=== PATIENT | male | born 1935 | race Caucasian/White ===

== ENCOUNTER 2018-04-05 15:26 | Inpatient (IN) | payer MEDICARE, OTHER ==
[~2018-04-05] VITALS: Ht 175.3 cm; Wt 85.5 kg
[~2018-04-05 15:26] MED LIST: BENAZEPRIL; HUMALOG INSULIN; METFORMIN; NPH; SIMVASTATIN
--- NOTE | 2018-04-05 15:53 | ERD ---
ER Documentation Chief Complaint Chief Complaint Fainted HPI The patient is a 82-year-old male, presenting to the ER because he fainted around 3 PM, witnessed by his , he fell backward and hit the back of the head on the floor. He feels as if he was going to faint, he was going to check his blood glucose but was unable to. He vomited after he fell, denies headache, facial pain, neck pain, chest pain, dyspnea, abdominal pain, tongue bite, fecal/urinary incontinence. He does not smoke, has a cigar once in a while, does not drink Past medical history: Diabetes mellitus, hypertension, dyslipidemia Past surgical history: Cholecystectomy, eye diabetic retinopathy ROS All systems reviewed and are negative except as per history of present illness. Medications Home Meds Reported Medications Cyanocobalamin* (Vitamin B12*) Unknown Strength Tab, 1 TAB PO DAILY, TAB 04/05/18 Cholecalciferol* (Vitamin D3*) Unknown Strength Tablet, 1 TAB PO DAILY, TAB 04/05/18 Ascorbic Acid (Vitamin C) Unknown Strength Tab, 1 TAB PO DAILY, TAB 04/05/18 Levocarnitine (Carnitine) 250 Mg Capsule, 500 MG PO DAILY, CAP 04/05/18 Thioctic Acid (Alpha Lipoic Acid) 100 Mg Capsule, 100 MG PO BID, CAP 04/05/18 Ubidecarenone (Coenzyme Q-10) 200 Mg Capsule, 200 MG PO DAILY, CAP 04/05/18 Bromfenac Sodium (Bromsite) 5 Ml Drops, 5 ML OP BID, BOTTLE 04/05/18 Gabapentin* (Gabapentin*) 100 Mg Capsule, 100 MG PO QHS, #90 CAP 04/05/18 Metoprolol Succinate* (Toprol XL*) 25 Mg Tab.sr.24h, 25 MG PO DAILY, #30 TAB 04/05/18 Leuprolide Acetate (LUPRON DEPOT-PED) 30 Mg Syringekit, 30 MG IM Q 4 MONTHS 04/05/18 Aspirin* (Aspirin* EC) 81 Mg Tablet.dr, 81 MG PO DAILY, TAB 04/05/18 Medroxyprogesterone Acetate* (Provera*) 10 Mg Tablet, 10 MG PO NEEDED, TAB 04/05/18 Chlorthalidone* (Chlorthalidone*) 25 Mg Tablet, 12.5 MG PO DAILY, TAB 04/05/18 Benazepril Hcl* (Benazepril Hcl*) 20 Mg Tablet, 20 MG PO BID, #60 TAB TAKE 2 TAB-QAM, 1TAB-QPM 04/05/18 Verapamil Hcl* (Verapamil ER*) 120 Mg Tablet.er, 120 MG PO BID, TAB.SA 04/05/18 Atorvastatin Calcium* (Atorvastatin Calcium*) 20 Mg Tablet, 20 MG PO QHS, #30 TAB 04/05/18 Metformin Hcl* (Metformin Hcl*) 1,000 Mg Tablet, 1000 MG PO WITH BREAKFAST DINNE, #60 TAB 04/05/18 Insulin Glargine,Hum.rec.anlog (Basaglar Kwikpen U-100) 100 Unit/1 Ml Insuln.pen, 16 UNIT SC QHS, EA 04/05/18 Insulin Aspart* (Novolog Insulin Pen*) 100 Unit/Ml Soln, 0 SC WITH MEALS, EA 7 unit-qam, 7 unit-noon, 6 unit-qpm 04/05/18 Discontinued Reported Medications [Nph] No Conflict Check 10/26/10 [Humalog Insulin] No Conflict Check 10/26/10 [Benazepril] No Conflict Check 10/26/10 [Simvastatin] No Conflict Check 10/26/10 [Metformin] No Conflict Check 10/26/10 Allergies Allergies: Coded Allergies: No Known Drug Allergies (Verified Allergy, Unknown, 04/05/18) PMhx/Soc History of Surgery: Yes (GALLBLADDER) Anesthesia Reaction: No Hx Neurological Disorder: No Hx Respiratory Disorders: No Hx Cardiac Disorders: Yes (HTN) Hx Psychiatric Problems: No 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 Head: Atraumatic. Eyes: Normal Conjunctiva. ENT: Normal External Ears, Nose and Mouth. Neck: Full range of motion. No meningismus. Resp: Clear to auscultation bilaterally. Cardio: Regular bradycardic Abd: Soft, non distended, normal bowel sounds, non tender. Skin: No petechiae or rashes. Back: No midline or flank tenderness. Ext: No cyanosis, or edema. Neur: Awake and alert. No focal deficit Psych: Normal Mood and Affect. Result Diagram: 04/05/18 1630 04/05/18 1630 Results 24 hrs Laboratory Tests Test 04/05/18 16:30 04/05/18 16:40 White Blood Count 8.9 10^3/ul Red Blood Count 4.43 10^6/ul Hemoglobin 12.0 g/dl Hematocrit 38.5 % Mean Corpuscular Volume 86.9 fl Mean Corpuscular Hemoglobin 27.1 pg Mean Corpuscular Hemoglobin Concent 31.2 g/dl Red Cell Distribution Width 14.0 % Platelet Count 223 10^3/UL Mean Platelet Volume 11.2 fl Immature Granulocytes % 0.400 % Neutrophils % 70.2 % Lymphocytes % 18.5 % Monocytes % 7.4 % Eosinophils % 2.9 % Basophils % 0.6 % Nucleated Red Blood Cells % 0.0 /100WBC Immature Granulocytes # 0.040 10^3/ul Neutrophils # 6.3 10^3/ul Lymphocytes # 1.7 10^3/ul Monocytes # 0.7 10^3/ul Eosinophils # 0.3 10^3/ul Basophils # 0.1 10^3/ul Nucleated Red Blood Cells # 0.0 10^3/ul Prothrombin Time 12.2 Sec Prothrombin Time Ratio 1.0 INR International Normalized Ratio 0.89 Activated Partial Thromboplast Time 31.5 Sec Sodium Level 143 mmol/L Potassium Level 4.4 mmol/L Chloride Level 103 mmol/L Carbon Dioxide Level 31 mmol/L Anion Gap 9 Blood Urea Nitrogen 21 mg/dl Creatinine 0.94 mg/dl Est Glomerular Filtrat Rate mL/min mL/min Glucose Level 124 mg/dl Calcium Level 9.9 mg/dl Troponin I < 0.012 ng/ml Bedside Glucose 111 mg/dL Current Medications Medications Dose Sig/Karthik Start Time Status Last (Trade) Ordered Route PRN Stop Time Admin Dose Reason Admin IV Flush 3 ml PER 04/05/18 (NS 3 ml) PROTOCOL IV 19:00 1 tab Q6H PRN 04/05/18 Acetaminophen PO MODERATE 19:00 / PAIN LEVEL Hydrocodone 4-6 Bitart (Archbald (5/325)) Enoxaparin 30 mg DAILY SC 04/06/18 Sodium 09:00 (Lovenox) Aspirin 81 mg DAILY PO 04/06/18 (Halfprin) 09:00 20 mg QHS PO 04/05/18 Atorvastatin 21:00 Calcium (Lipitor) Gabapentin 100 mg QHS PO 04/05/18 (Neurontin) 21:00 Insulin 13 units DAILY@199904/05/18 Glargine SC 20:00 (Lantus) Insulin 4 unit WITH MEALS 04/06/18 Aspart SC 08:00 (Novolog Insulin Pen) ONCE ONCE 04/05/18 Miscellaneous HYPOGLYCEMIA XX 19:00 04/05/18 PROTOCOL 19:01 Information w... (* Miscellaneous Pharmacy Order) Insulin NOVOLOG WITH MEALS 04/05/18 Aspart *MILD* BEDTIME SC 21:00 (Novolog ALGORITHM Insulin Pen) 1 ea NOTE XX 04/05/18 Miscellaneous 19:00 Information Glucose 15 gm Q15M PRN 04/05/18 (Glutose) PO DECREASED 19:00 GLUCOSE Glucose 22.5 gm Q15M PRN 04/05/18 (Glutose) PO DECREASED 19:00 GLUCOSE Dextrose 25 ml Q15M PRN 04/05/18 (D50w IV DECREASED 19:00 Syringe) GLUCOSE Dextrose 50 ml Q15M PRN 04/05/18 (D50w IV DECREASED 19:00 Syringe) GLUCOSE Glucagon 1 mg Q15M PRN 04/05/18 (Glucagen) IM DECREASED 19:00 GLUCOSE Glucose 15 gm Q15M PRN 04/05/18 (Glutose) BUCCAL 19:00 DECREASED GLUCOSE Procedures/[place] [address] Radiology Main Line: [phone] DIAGNOSTIC IMAGING REPORT Patient: MARELY VAN : 1935 Age: 82 Sex: M MR #: [id number] DOS: 04/05/18 1621 Ordering MD: ESTIVEN LEA MD Location: E/R Room/Bed: PROCEDURE: CT Brain without contrast. CLINICAL INDICATION: Syncope. TECHNIQUE: A CT of the brain without contrast was performed utilizing axial sections from the skull base through the vertex. One or more the following does reduction techniques were utilized: Automated exposure control, adjustment of the mA/ or kV according to patient's size, or use of iterative reconstruction technique. Total exam CTDIvol is 38.77 MGy and DLP is 713.51 mGy-cm. DICOM images are available. COMPARISON: None available . FINDINGS: The ventricles and sulci are moderately prominent indicative of volume loss. There is mild cerebellar volume loss. There is no intracranial hemorrhage, mass effect or midline shift. No abnormal intra-axial or extra-axial fluid collections are seen. The crawford/white matter differentiation is preserved. There are mild foci of hypoattenuation in the white matter, which are nonspecific in etiology but likely reflect chronic small vessel ischemic changes. There are mild intracranial vascular calcifications consistent with atherosclerosis. The visualized paranasal sinuses are essentially clear. There is thinning of bilateral lens indicative of prior lens replacement. IMPRESSION: 1. No acute intracranial hemorrhage, transcortical infarction or mass effect. 2. Mild intracranial atherosclerosis and chronic small vessel ischemic changes. 3. Moderate generalized cerebral and mild cerebellar volume loss. RPTAT: HH .Priti Oconnor MD, MD Date Time Electronically viewed and signed by .Priti Oconnor MD, on 04/05/2018 17:04 .N/ CC: ESTIVEN LEA MD [id number] [place] [address] Radiology Main Line: [phone] DIAGNOSTIC IMAGING REPORT Patient: MARELY VAN : 1935 Age: 82 Sex: M MR #: [id number] DOS: 04/05/18 1621 Ordering MD: ESTIVEN LEA MD Location: E/R Room/Bed: PROCEDURE: XR Chest. CLINICAL INDICATION: Syncope TECHNIQUE: Single frontal view of the chest was obtained COMPARISON: None FINDINGS: There is hypoinflation lungs and bibasilar atelectasis. Hypoinflation lungs and portable AP technique accentuates the size of the cardiac silhouette. The heart does not appear to be grossly enlarged. Calcification in the aortic arch. ECG leads project over the chest. Mild osteoarthrosis at shoulders. Surgical clips in right upper quadrant of at minute. There is no pleural effusion or pneumothorax. IMPRESSION: Hypoinflation of the lungs and bibasilar atelectasis. RPTAT: HJES .Tony Peoples MD, MD Date Time Electronically viewed and signed by .Tony Peoples MD, on 04/05/2018 17:32 .S/ CC: ESTIVEN LEA MD [id number] EKG: Read by emergency physician Rate/Rhythm: Sinus nidhi 49 beats/min QRS, ST, T-waves: No ST elevation, no T inversion Impression: Abnormal EKG MEDICAL MAKING DECISION: The patient is a 82-year-old male, presenting with acute syncope, acute bradycardia. He is stable in the emergency department The differential diagnoses considered include but are not limited to sick sinus syndrome, arrhythmogenic right ventricular dysplasia, Brugada syndrome, left aubrie tricular hypertrophy, pulmonary embolism, QT abnormality, Oefr-Jouitrabg-Wgora. Departure Diagnosis: Primary Impression: Syncope Additional Impressions: Bradyarrhythmia Anemia Condition: Stable Comments I discussed the findings with the patient. I discussed the patient with the hospitalist Dr. Acosta at 5:40 PM who was made aware of the lab, the treatment, the patient condition. The patient is admitted to Tel Disclaimer: Inadvertent spelling and grammatical errors are likely due to EHR/dictation software use and do not reflect on the overall quality of patient care. Also, please note that the electronic time recorded on this note does not necessarily reflect the actual time of the patient encounter. ESTIVEN LEA MD Apr 05, 2018 15:53
[2018-04-05] MEDS ORDERED: NOVO3I SC (17:45)
[2018-04-05] MEDS ORDERED: METF100010 PO (17:46)
[2018-04-05] MEDS ORDERED: INSU100I33 SC (17:46)
[2018-04-05] MEDS ORDERED: ATOR20TA38 PO (17:46)
[2018-04-05] MEDS ORDERED: VERA120T77 PO (17:47)
[2018-04-05] MEDS ORDERED: BENA20TA4 PO (17:48)
[2018-04-05] MEDS ORDERED: CHLO25TA2 PO (17:50)
[2018-04-05] MEDS ORDERED: MEDR10TA2 PO (17:51)
[2018-04-05] MEDS ORDERED: ASPI-817 PO (17:51)
[2018-04-05] MEDS ORDERED: LEUP30SY IM (17:52)
[2018-04-05] MEDS ORDERED: GABA100C14 PO (17:53)
[2018-04-05] MEDS ORDERED: METO-335 PO (17:53)
[2018-04-05] MEDS ORDERED: BROM5DRO3 OP (17:54)
[2018-04-05] MEDS ORDERED: UBID200C31 PO (17:58)
[2018-04-05] MEDS ORDERED: ALPH100C PO (17:58)
[2018-04-05] MEDS ORDERED: LEVO250C PO (18:01)
[2018-04-05] MEDS ORDERED: ASC500 PO (18:02)
[2018-04-05] MEDS ORDERED: CHOL100062 PO (18:03)
[2018-04-05] MEDS ORDERED: CYAN500T46 PO (18:04)
--- NOTE | 2018-04-05 18:31 | HP ---
Date/Time of Note Date/Time of Note DATE: 04/05/18 TIME: 18:26 Assessment/Plan VTE Prophylaxis Pharmacological prophylaxis: heparin Lines/Catheters IV Catheter Type (from [facility]): Saline Lock Assessment/Plan Hospital Course 82-year-old male with a history of diabetes, hypertension, "irregular heartbeat "who presents after syncope today at rest -His syncope story is a bit concerning mostly for transient heart block given bradycardia and that he is on verapamil metoprolol. We will monitor him on telemetry. I will consult Dr. Meadows from cardiology and hold his verapamil and metoprolol currently. He is bradycardic now and I do not see an indication for either of these -We will obtain a TTE -Cycle troponins Diabetes: -Basal bolus insulin Hypertension: - Hold meds for now Dispo pending workup Result Diagram: 04/05/18 1630 04/05/18 1630 Results 24hrs Laboratory Tests Test 04/05/18 16:30 04/05/18 16:40 White Blood Count 8.9 Red Blood Count 4.43 L Hemoglobin 12.0 L Hematocrit 38.5 L Mean Corpuscular Volume 86.9 Mean Corpuscular Hemoglobin 27.1 L Mean Corpuscular Hemoglobin Concent 31.2 L Red Cell Distribution Width 14.0 Platelet Count 223 Mean Platelet Volume 11.2 H Immature Granulocytes % 0.400 Neutrophils % 70.2 Lymphocytes % 18.5 Monocytes % 7.4 Eosinophils % 2.9 Basophils % 0.6 Nucleated Red Blood Cells % 0.0 Immature Granulocytes # 0.040 H Neutrophils # 6.3 Lymphocytes # 1.7 Monocytes # 0.7 Eosinophils # 0.3 Basophils # 0.1 Nucleated Red Blood Cells # 0.0 Prothrombin Time 12.2 Prothrombin Time Ratio 1.0 INR International Normalized Ratio 0.89 Activated Partial Thromboplast Time 31.5 Sodium Level 143 Potassium Level 4.4 Chloride Level 103 Carbon Dioxide Level 31 Anion Gap 9 Blood Urea Nitrogen 21 H Creatinine 0.94 Est Glomerular Filtrat Rate mL/min Glucose Level 124 Calcium Level 9.9 Troponin I < 0.012 Bedside Glucose 111 HPI/ROS Admit Date/Time Admit Date/Time Hx of Present Illness This is an 82-year-old male with history of diabetes, hypertension, as well as what sounds like chronic bradycardia and PVCs who presents after a syncopal event today. Patient was in his usual state of health until this occurred. He was sitting at a table in a chair at rest. He does not remember any of these events. But his was at who described him immediately slumping over and syncopized he got to the floor. The patient regained consciousness shortly thereafter felt a bit nauseous and vomited. Then felt back to his normal self. He denies any prodrome whatsoever. He has good exercise tolerance no angina. He has never syncopized was like this before. He does describe a history of "irregular heartbeat "but does not know anything more than this. He has been given metoprolol as a result. PMH/Family/Social Past Medical History Medical History: diabetes, hypertension Coded Allergies: No Known Drug Allergies (Verified Allergy, Unknown, 04/05/18) Past Surgical History Past Surgical Hx: no surgical history Family History Significant Family History: no pertinent family hx Social History Smoking Status: Current some day smoker Drug Use: none Exam/Review of Systems Vital Signs Vitals Vital Signs Date Temp Pulse Resp B/P (MAP) Pulse Ox O2 O2 Flow FiO2 Time Delivery Rate 04/05/18 52 16 187/65 98 Room Air 18:05 (105) 04/05/18 97.5 15:30 Exam Constitutional: alert, oriented, well developed Psych: no complaints, nl mood/affect Head: normocephalic, atraumatic Eyes: nl conjunctiva, EOMI, nl lids, nl sclera, PERRL ENMT: nl external ears & nose, nl lips & teeth, nl nasal mucosa & septum Neck: supple, non-tender Respiratory: clear to auscultation, normal air movement Cardiovascular: other (Bradycaridic, regular) Gastrointestinal: soft, nl liver, spleen, non-tender Musculoskeletal: nl extremities to inspection Extremities: normal pulses Neurological: STOCK REPLENISHER II-XII intact, nl mental status, nl speech, nl strength Skin: nl turgor; No rash or lesions Lymph: nl lymph nodes EMMANUEL GONZALEZ MD Apr 05, 2018 18:31
[2018-04-05] MEDS ORDERED: NACL 0.9% 3 ML SYG IV SCH (19:00)
[2018-04-05] MEDS ORDERED: DEXTROSE 50% 50 ML SYRINGE IV PRN ×2 (19:00)
[2018-04-05] MEDS ORDERED: HYDROCODONE/APAP (5/325) TAB PO PRN (19:00)
[2018-04-05] MEDS ORDERED: GLUCOSE GEL 15 GRAM TUBE BUCCAL PRN (19:00)
[2018-04-05] MEDS ORDERED: GLUCAGON 1 MG INJ IM PRN (19:00)
[2018-04-05] MEDS ORDERED: GLUCOSE GEL 15 GRAM TUBE PO PRN ×2 (19:00)
[2018-04-05 20:00] VITALS: Ht 175.3 cm; Wt 85.5 kg
[2018-04-05] MEDS ORDERED: INSULIN GLARGINE [LANTus] (100 UNITS/ML) SYG SC SCH (20:00)
[2018-04-05 20:30] VITALS: PULSE 55
[2018-04-05] MEDS ORDERED: ATORVASTATIN 20 MG TAB PO SCH (21:00)
[2018-04-05] MEDS ORDERED: GABAPENTIN 100 MG CAP PO SCH (21:00)
[2018-04-05] MEDS: INSULIN ASPART [NOVOLOG] 3 ML PEN SC SCH (21:00)
[2018-04-05 21:11] VITALS: BP 156/71; PULSE 59; RESP 18
[2018-04-06] VITALS (8 sets, daily range): BP systolic 150–163; BP diastolic 70–78; PULSE 46–60; RESP 16–18
[2018-04-06] MEDS: INSULIN ASPART [NOVOLOG] 3 ML PEN SC SCH ×4 (08:20→12:08)
[2018-04-06] MEDS ORDERED: ASPIRIN (EC) 81 MG TAB PO SCH (09:00)
[2018-04-06] MEDS ORDERED: ENOXAPARIN 30 MG/0.3 ML SYG SC SCH (09:00)
--- NOTE | 2018-04-06 11:02 | RADRPT ---
Echocardiogram Report Patient Name: MARELY VAN Gender: Male Date: 1935 Study Date: 06-Apr-2018 Production Stage Manager: Valencia Johnson [facility] Location: [address] Ref. Physician: EMMANUEL GONZALEZ Quality: Good Procedures: Transthoracic echocardiogram with complete 2D, M-Mode, and doppler examination. Indications: Syncope. 2D/M Mode Doppler Measurement Value Normal Ranges Measurement Value Normal Ranges LVIDd 2D 4.4 3.5 - 5.6 cm AV Peak Derrick 1.9 m/sec LVIDs 2D 2.3 2.1 - 4.1 cm AV Peak PG 14.0 mmHg LVPWd 2D 1.2 0.6 - 1.1 cm LVOT Peak Derrick 1.2 m/sec IVSd 2D 1.1 0.6 - 1.1 cm LVOT Peak PG 6.0 mmHg AoR Diam 2D 3.5 2.0 - 3.7 cm MV E Peak Derrick 1.0 m/sec LA/Ao 2D 1 0 - 1 MV A Peak Derrick 1.3 m/sec LA Dimen 2D 3.8 2.3 - 4.0 cm MV E/A 0.7 MV Decel Time 264 msec Lat E` Derrick 0.1 m/sec Lateral E/E` 11.6 MV E/A 0.7 TR Peak Derrick 2.0 m/sec TR Peak PG 15.0 mmHg RVSP 18.0 mmHg RA Pressure 3.0 Findings Left Ventricle: Hyperdynamic left ventricular systolic function. Normal left ventricular cavity size. Mild concentric left ventricular hypertrophy. Ejection fraction is visually estimated at 70 %. Tissue Doppler/Mitral Doppler indices are consistent with impaired relaxation (Stage I diastolic dysfunction). Right Ventricle: Normal right ventricular size. Normal right ventricular systolic function. Left Atrium: The left atrium is normal in size. Right Atrium: The right atrium is normal in size. Mitral Valve: Normal appearance of the mitral valve. Mild mitral annular calcification. Trace mitral regurgitation. Aortic Valve: No significant aortic stenosis or insufficiency. Aortic cusps appear mildly calcified. Tricuspid Valve: Normal appearance of the tricuspid valve. Estimated peak PA systolic pressure 18 mmHg. There is trace tricuspid regurgitation. Pulmonic Valve: Normal pulmonic valve appearance. There is trace pulmonic regurgitation. Pericardium: Normal pericardium with no significant pericardial effusion. Aorta: Normal aortic root. IVC: Normal size and normal respiratory collapse consistent with normal right atrial pressure. Conclusions Hyperdynamic left ventricular systolic function. Normal left ventricular cavity size. Mild concentric left ventricular hypertrophy. Ejection fraction is visually estimated at 70 %. Tissue Doppler/Mitral Doppler indices are consistent with impaired relaxation (Stage I diastolic dysfunction). Normal appearance of the mitral valve. Mild mitral annular calcification. Trace mitral regurgitation. No significant aortic stenosis or insufficiency. Aortic cusps appear mildly calcified. Normal appearance of the tricuspid valve. Estimated peak PA systolic pressure 18 mmHg. There is trace tricuspid regurgitation. Electronically Signed By: Rob Odom 06-Apr-2018 11:01:33 -0800 Patient Name: MARELY VAN Study Date: 06-Apr-2018 [id number]
--- NOTE | 2018-04-06 14:15 | PDOCDIS ---
Discharge Instructions DIAGNOSIS Discharge Diagnosis Syncope Bradycardia CONDITION [id number] Patient Condition: [id number] Stable FOLLOW UP/APPOINTMENTS Follow-up Plan Discuss your symptoms with your home lighting adviser. Stop taking verapamil and metoprolol until you see your home lighting adviser EMMANUEL GONZALEZ MD Apr 06, 2018 14:15
--- NOTE | 2018-04-06 14:16 | DS ---
Date/Time of Note Date/Time of Note DATE: 04/06/18 TIME: 14:15 Discharge Summary Admission/Discharge Info Admit Date/Time Apr 05, 2018 at 17:46 Discharge Date/Time Discharge Diagnosis Syncope Bradycardia Patient Condition: Stable Hx of Present Illness This is an 82-year-old male with history of diabetes, hypertension, as well as what sounds like chronic bradycardia and PVCs who presents after a syncopal event today. Patient was in his usual state of health until this occurred. He was sitting at a table in a chair at rest. He does not remember any of these events. But his was at who described him immediately slumping over and syncopized he got to the floor. The patient regained consciousness shortly thereafter felt a bit nauseous and vomited. Then felt back to his normal self. He denies any prodrome whatsoever. He has good exercise tolerance no angina. He has never syncopized was like this before. He does describe a history of "irregular heartbeat "but does not know anything more than this. He has been given metoprolol as a result. Hospital Course 82-year-old male with a history of diabetes, hypertension, "irregular heartbeat "who presents after syncope today at rest His home medications of metoprolol and verapamil were held. Despite this, the patient remained bradycardic to the 50s. He was asyptomatic. Troponin was negative x 3. He was seen by cardiology who recommended a stress test. However, the patient preferred to be discharged and have this done by his director surface transportation as an outpatient, he has an appointment tomorrow to see him. He was advised to hold metoprolol and verapamil at discharge until he sees his doctor. Home Meds Reported Medications Cyanocobalamin* (Vitamin B12*) Unknown Strength Tab, 1 TAB PO DAILY, TAB 04/05/18 Cholecalciferol* (Vitamin D3*) Unknown Strength Tablet, 1 TAB PO DAILY, TAB 04/05/18 Ascorbic Acid (Vitamin C) Unknown Strength Tab, 1 TAB PO DAILY, TAB 04/05/18 Levocarnitine (Carnitine) 250 Mg Capsule, 500 MG PO DAILY, CAP 04/05/18 Thioctic Acid (Alpha Lipoic Acid) 100 Mg Capsule, 100 MG PO BID, CAP 04/05/18 Ubidecarenone (Coenzyme Q-10) 200 Mg Capsule, 200 MG PO DAILY, CAP 04/05/18 Bromfenac Sodium (Bromsite) 5 Ml Drops, 5 ML OP BID, BOTTLE 04/05/18 Gabapentin* (Gabapentin*) 100 Mg Capsule, 100 MG PO QHS, #90 CAP 04/05/18 Metoprolol Succinate* (Toprol XL*) 25 Mg Tab.sr.24h, 25 MG PO DAILY, #30 TAB 04/05/18 Leuprolide Acetate (LUPRON DEPOT-PED) 30 Mg Syringekit, 30 MG IM Q 4 MONTHS 04/05/18 Aspirin* (Aspirin* EC) 81 Mg Tablet.dr, 81 MG PO DAILY, TAB 04/05/18 Medroxyprogesterone Acetate* (Provera*) 10 Mg Tablet, 10 MG PO NEEDED, TAB 04/05/18 Chlorthalidone* (Chlorthalidone*) 25 Mg Tablet, 12.5 MG PO DAILY, TAB 04/05/18 Benazepril Hcl* (Benazepril Hcl*) 20 Mg Tablet, 20 MG PO BID, #60 TAB TAKE 2 TAB-QAM, 1TAB-QPM 04/05/18 Verapamil Hcl* (Verapamil ER*) 120 Mg Tablet.er, 120 MG PO BID, TAB.SA 04/05/18 Atorvastatin Calcium* (Atorvastatin Calcium*) 20 Mg Tablet, 20 MG PO QHS, #30 TAB 04/05/18 Metformin Hcl* (Metformin Hcl*) 1,000 Mg Tablet, 1000 MG PO WITH BREAKFAST DINNE, #60 TAB 04/05/18 Insulin Glargine,Hum.rec.anlog (Basaglar Kwikpen U-100) 100 Unit/1 Ml Insuln .pen, 16 UNIT SC QHS, EA 04/05/18 Insulin Aspart* (Novolog Insulin Pen*) 100 Unit/Ml Soln, 0 SC WITH MEALS, EA 7 unit-qam, 7 unit-noon, 6 unit-qpm 04/05/18 Discontinued Reported Medications [Nph] No Conflict Check 10/26/10 [Humalog Insulin] No Conflict Check 10/26/10 [Benazepril] No Conflict Check 10/26/10 [Simvastatin] No Conflict Check 10/26/10 [Metformin] No Conflict Check 10/26/10 Follow-up Plan Discuss your symptoms with your director surface transportation. Stop taking verapamil and metoprolol until you see your director surface transportation Primary Care Provider Not On Staff Doctor Pending Labs Laboratory Tests Test 04/05/18 16:30 04/05/18 16:40 04/05/18 20:49 04/05/18 21:23 White Blood 8.9 Count 10^3/ul (4.8-10 .8) Red Blood 4.43 Count 10^6/ul (4.70-6 .10) Hemoglobin 12.0 g/dl (14.0-18.0 ) Hematocrit 38.5 % (42.0-52.0) Mean 86.9 Corpuscular fl (82.0-101.0) Volume Mean 27.1 Corpuscular pg (29.0-33.0) Hemoglobin Mean 31.2 Corpuscular g/dl (32.0-37.0 Hemoglobin Conc ) ent Red Cell 14.0 Distribution % (11.5-14.5) Width Platelet Count 223 10^3/UL (140-41 5) Mean Platelet 11.2 Volume fl (7.4-10.4) Immature 0.400 Granulocytes % % (0.001-0.429) Neutrophils % 70.2 % (39.0-77.0) Lymphocytes % 18.5 % (15.0-51.0) Monocytes % 7.4 % (0.0-11.0) Eosinophils % 2.9 % (0.0-7.0) Basophils % 0.6 % (0.0-2.0) Nucleated Red 0.0 Blood Cells % /100WBC (0.0-0. 0) Immature 0.040 Granulocytes # 10^3/ul (0.0-0. 031) Neutrophils # 6.3 10^3/ul (1.6-7. 5) Lymphocytes # 1.7 10^3/ul (0.8-2. 9) Monocytes # 0.7 10^3/ul (0.3-0. 9) Eosinophils # 0.3 10^3/ul (0.0-0. 5) Basophils # 0.1 10^3/ul (0.0-0. 1) Nucleated Red 0.0 Blood Cells # 10^3/ul (0.0-0. 0) Prothrombin 12.2 Time Sec (11.9-14.9) Prothrombin 1.0 Time Ratio INR 0.89 International Normalized Rati o Activated 31.5 Partial Thrombo Sec (23.0-35.0) plast Time Sodium Level 143 mmol/L (135-144 ) Potassium 4.4 Level mmol/L (3.5-5.1 ) Chloride Level 103 mmol/L (97-110) Carbon Dioxide 31 Level mmol/L (21-31) Anion Gap 9 (5-13) Blood Urea 21 mg/dl (7-20) Nitrogen Creatinine 0.94 mg/dl (0.61-1.2 4) Est Glomerular mL/min (>60) Filtrat Rate mL/min Glucose Level 124 mg/dl (70-220) Calcium Level 9.9 mg/dl (8.4-10.2 ) Troponin I < 0.012 < 0.012 ng/ml (0.000-0. ng/ml (0.000-0 120) .120) Bedside 111 136 Glucose mg/dL (70-220) mg/dL (70-220) Creatine 36 Kinase IU/L (23-200) Creatine Kinase 3.1 Index Creatinine 1.13 Kinase MB ng/ml (0.0-2.4 (Mass) ) Test 04/06/18 00:23 04/06/18 07:13 04/06/18 08:15 04/06/18 12:01 Creatine 35 Kinase IU/L (23-200) Creatine Kinase 2.6 Index Creatinine 0.92 Kinase MB ng/ml (0.0-2.4) (Mass) Troponin I < 0.012 ng/ml (0.000-0. 120) White Blood 7.8 Count 10^3/ul (4.8-1 0.8) Red Blood 4.07 Count 10^6/ul (4.70- 6.10) Hemoglobin 11.2 g/dl (14.0-18. 0) Hematocrit 34.7 % (42.0-52.0) Mean 85.3 Corpuscular fl (82.0-101.0 Volume ) Mean 27.5 Corpuscular pg (29.0-33.0) Hemoglobin Mean 32.3 Corpuscular g/dl (32.0-37. Hemoglobin Conc 0) ent Red Cell 14.0 Distribution % (11.5-14.5) Width Platelet Count 210 10^3/UL (140-4 15) Mean Platelet 12.2 Volume fl (7.4-10.4) Immature 0.400 Granulocytes % % (0.001-0.429 ) Neutrophils % 63.5 % (39.0-77.0) Lymphocytes % 24.0 % (15.0-51.0) Monocytes % 8.2 % (0.0-11.0) Eosinophils % 3.3 % (0.0-7.0) Basophils % 0.6 % (0.0-2.0) Nucleated Red 0.0 Blood Cells % /100WBC (0.0-0 .0) Immature 0.030 Granulocytes # 10^3/ul (0.0-0 .031) Neutrophils # 5.0 10^3/ul (1.6-7 .5) Lymphocytes # 1.9 10^3/ul (0.8-2 .9) Monocytes # 0.6 10^3/ul (0.3-0 .9) Eosinophils # 0.3 10^3/ul (0.0-0 .5) Basophils # 0.1 10^3/ul (0.0-0 .1) Nucleated Red 0.0 Blood Cells # 10^3/ul (0.0-0 .0) Sodium Level 141 mmol/L (135-14 4) Potassium 3.8 Level mmol/L (3.5-5. 1) Chloride Level 104 mmol/L (97-110 ) Carbon Dioxide 30 Level mmol/L (21-31) Anion Gap 7 (5-13) Blood Urea 18 Nitrogen mg/dl (7-20) Creatinine 0.81 mg/dl (0.61-1. 24) Est Glomerular mL/min (>60) Filtrat Rate mL/min Glucose Level 154 mg/dl (70-220) Hemoglobin A1c 6.3 % (0-5.9) Calcium Level 9.5 mg/dl (8.4-10. 2) Total 0.2 Bilirubin mg/dl (0.2-1.3 ) Direct 0.00 Bilirubin mg/dl (0.00-0. 20) Indirect 0.2 Bilirubin mg/dl (0-1.1) Aspartate Amino 20 Transf (AST/SGO IU/L (15-46) T) Alanine 30 Aminotransferas IU/L (13-69) e (ALT/SGPT) Alkaline 53 Phosphatase IU/L (42-121) Total Protein 6.0 g/dl (6.1-8.1) Albumin 3.6 g/dl (3.3-4.9) Globulin 2.40 g/dl (1.3-3.2) Albumin/Globuli 1.50 n Ratio Bedside 143 208 Glucose mg/dL (70-220) mg/dL (70-220) EMMANUEL GONZALEZ MD Apr 06, 2018 14:16
--- NOTE | 2018-04-07 07:56 | CONS ---
DATE OF ADMISSION: 04/05/2018 DATE OF CONSULTATION: 04/06/2018 TYPE OF CONSULTATION: Cardiology. REFERRING PHYSICIAN: Emmanuel Acosta MD REASON FOR EVALUATION: Syncope. HISTORY OF PRESENT ILLNESS: Mr. Wetzel is a pleasant 82-year-old gentleman with history of hyper tension, dyslipidemia, history of longstanding diabetes and possible heart disease, who comes to the hospital now for evaluation of syncopal episode. The patient said that he was sitting at his compute r doing his usual activities when he did not feel right. He was reaching for his glucometer to make sure that he is not hypoglycemic and then he passed out. On presentation, the patient was somewhat b radycardic but he was also on metoprolol and Verapamil at that time. Here in the hospital the patien t's heart rate gradually improved and he appears to be hemodynamically stable at this particular poin t. Patient does not report any chest pain to me at this particular point. He said this is his first episode. For now, the patient is potentially reversible cause of bradycardia which is verapamil and metoprolol which has been held. We will continue to monitor closely while the patient is in [facility]. I think it would be reasonable to stratify with a stress test to assess extensive coronary artery disease or whether he has an indication for the verapamil and metoprolol use. Other than that, we w ill continue to monitor. There is no class I indication for pacemaker now given for potential revers ible cause. PAST MEDICAL HISTORY: 1. Hypertension. 2. Dyslipidemia. 3. History of possible coronary artery disease. 4. History of possible irregular beats poorly defined. 5. Mild dementia. ALLERGIES: No known drug allergies. SOCIAL HISTORY: The patient does not smoke, does not drink, does not use any drugs. FAMILY HISTORY: Negative for sudden cardiac or premature coronary artery disease, history of d iabetes in the family. MEDICATIONS: The patient is on: 1. Lovenox. 2. Aspirin 81 mg. 3. Insulin sliding scale. 4. Atorvastatin. 5. Gabapentin. 6. Glucose replacement. 7. Beta jr. 8. Statin. 9. . REVIEW OF SYSTEMS: CONSTITUTIONAL: No fevers, no chills, no recent weight changes. HEENT: No changes in vision or hearing. CARDIAC: . RESPIRATORY: Short of breath. GASTROINTESTINAL: No nausea, vomiting. GENITOURINARY: No dysuria or hematuria. NEUROLOGIC: No focal neurologic deficits. HEMATOLOGIC: Diskectomy. PSYCHIATRIC: No history of psychiatric illness. Syncope as described. PHYSICAL EXAMINATION: VITAL SIGNS: Temperature is 97.8, heart rate is 48, blood pressure 150/70. GENERAL: He is a thin gentleman in no distress, alert and oriented x3, aware of his condition, . NECK: Supple. JVD 6 cm. There is no lymphadenopathy, no thyromegaly. HEART: Regular, soft holosystolic murmur. PMI is minimally displaced. There is no S3. LUNGS: Coarse at the base. ABDOMEN: Distended, bowel sounds are present. There is no hepatosplenomegaly. GENITOURINARY: . EXTREMITIES: No cyanosis. Trace edema. LABORATORY DATA: White blood cell count is 7.8, hemoglobin 12.2, platelets 210. INR is 1.0. Sodium 141, potassium 3.8, BUN is 18, creatinine 0.8. Troponin is negative at 0.012. ASSESSMENT AND PLAN: 1. Syncope, etiology of syncope is possibly multifactorial. Patient is still bradycardia with sinus bradycardia. He was on a significant dose of beta jr and verapamil. For now, will continue to monitor. If patient has any evidence of hemodynamic instability, will consider pacemaker at that po int. There is no current class I indication for pacemaker at this particular point unless beta block er is needed for treatment of coronary artery disease. Therefore, I will advise stratification with a stress test. 2. Hypertension. Blood pressure slightly on the high side. Will add hydralazine for afterload redu ction as well as possible reflex tachycardia syndrome. 3. Diabetes. Continue diabetic optimization and care. 4. Syncope. Will continue to monitor. No evidence of injury. 5. Abnormal EKG as noted bradycardia with first-degree AV block. Continue to monitor. I would like to thank Dr. Acosta for referring this patient for my evaluation. Dictated By: BASILIO CORREA MD ML/NTS Conf#: [id number] DID#: [id number] CC: EMMANUEL ACOSTA MD;*EndCC*
== END 2018-04-06 14:41 | disposition home or self-care (01) | DRG 312 ==
LOC: E/R 15:26 → TEL 17:46
PROVIDERS: ADMIT Internal Medicine; ATTEND Internal Medicine
DX: R55 Syncope and collapse (principal); I49.8 Other specified cardiac arrhythmias; D64.9 Anemia, unspecified; R00.1 Bradycardia, unspecified; E11.9 Type 2 diabetes mellitus without complications; I10 Essential (primary) hypertension; E78.5 Hyperlipidemia, unspecified; F03.90 Unspecified dementia, unspecified severity, without behavioral disturbance, psychotic disturbance, mood disturbance, and anxiety; I44.0 Atrioventricular block, first degree
CPT/HCPCS: 36415; 70450; 71045; 80048; 80053; 82550; 82553; 82962; 83036; 84484; 85025; 85610; 85730; 93005; 93306; J1650; J1815

== ENCOUNTER 2018-09-07 05:15 | Observation (INO) | payer MEDICARE, OTHER ==
[~2018-09-07] VITALS: Ht 167.6 cm; Wt 73.8 kg
[2018-09-07] VITALS (25 sets, daily range): BP systolic 86–131; BP diastolic 34–67; PULSE 62–102; RESP 15–19; Ht 167.6 cm; Wt 73.8 kg
[~2018-09-07 05:15] MED LIST changes: +ALPH100C PO; +ASC500 PO; +ASPI-817 PO; +ATOR20TA38 PO; +BENA20TA4 PO; -BENAZEPRIL; +BROM5DRO3 OP; +CHLO25TA2 PO; +CHOL100062 PO; +CYAN500T46 PO; +GABA100C14 PO; -HUMALOG INSULIN; +INSU100I33 SC; +LEUP30SY IM; +LEVO250C PO; +MEDR10TA2 PO; +METF100010 PO; -METFORMIN; +NOVO3I SC; -NPH; -SIMVASTATIN; +UBID200C31 PO
[2018-09-07] MEDS ORDERED: CHLO25TA2 PO (06:29)
[2018-09-07] MEDS ORDERED: METO-335 PO (06:30)
[2018-09-07] MEDS ORDERED: INSU100I31 SQ (06:38)
[2018-09-07] MEDS ORDERED: BROM3DRO OP (06:40)
[2018-09-07] MEDS: SOD CHLORIDE 0.9% 1,000 ML IV SCH (06:44)
[2018-09-07] MEDS ORDERED: THROMBIN 5000 UNIT VIAL ONE (06:51)
[2018-09-07] MEDS ORDERED: BUPIVACAINE 0.25%/EPI (SDV) 30 ML INJ ONE (06:51)
[2018-09-07] MEDS ORDERED: POLYMYXIN/BACITRACIN 1L IRRIG ONE (06:51)
[2018-09-07] MEDS ORDERED: GELATIN SIZE 100 SPONGE ONE (06:51)
--- NOTE | 2018-09-07 06:52 | PREAC ---
Date/Time of Note Date/Time of Note DATE: 09/07/18 TIME: 06:50 Anesthesia Eval and Record Evaluation Time Pre-Procedure Interview DATE: 09/07/18 TIME: 06:50 Age 82 Sex male NPO: 8 hrs Preoperative diagnosis Lumbar Spinal Stenosis Planned procedure Lumbar Decompression and Possible Disectomy L3-4, L4-5, and L5-S1. Past Medical History Past Medical History: Includes Cardio: HTN, Dyslipidemia Endo: Diabetes Renal: BPH Surgery & Anesthesia Issues No known issue Meds Anticoagulation: No Beta Minda within 24 hr: Yes Reported Medications Bromfenac Sodium (Prolensa) 3 Ml Drops, 3 ML OP BID, BOTTLE 09/07/18 Insulin Degludec (Tresiba Flextouch U-100) 100 Unit/1 Ml Insuln.pen, 6 UNIT SQ HS 09/07/18 Metoprolol Succinate* (Toprol XL*) 25 Mg Tab.sr.24h, 25 MG PO DAILY, #30 TAB 09/07/18 Chlorthalidone* (Chlorthalidone*) 25 Mg Tablet, 5 MG PO DAILY, TAB 09/07/18 Cyanocobalamin* (Vitamin B12*) Unknown Strength Tab, 1 TAB PO DAILY, TAB 04/05/18 Cholecalciferol* (Vitamin D3*) Unknown Strength Tablet, 1 TAB PO DAILY, TAB 04/05/18 Ascorbic Acid (Vitamin C) Unknown Strength Tab, 1 TAB PO DAILY, TAB 04/05/18 Levocarnitine (Carnitine) 250 Mg Capsule, 500 MG PO DAILY, CAP 04/05/18 Thioctic Acid (Alpha Lipoic Acid) 100 Mg Capsule, 100 MG PO BID, CAP 04/05/18 Ubidecarenone (Coenzyme Q-10) 200 Mg Capsule, 200 MG PO DAILY, CAP 04/05/18 Gabapentin* (Gabapentin*) 100 Mg Capsule, 100 MG PO BID, #90 CAP 04/05/18 Leuprolide Acetate (LUPRON DEPOT-PED) 30 Mg Syringekit, 30 MG IM Q 4 MONTHS 04/05/18 Aspirin* (Aspirin* EC) 81 Mg Tablet.dr, 81 MG PO DAILY, TAB 04/05/18 Benazepril Hcl* (Benazepril Hcl*) 20 Mg Tablet, 20 MG PO BID, #60 TAB TAKE 2 TAB-QAM, 1TAB-QPM 04/05/18 Atorvastatin Calcium* (Atorvastatin Calcium*) 20 Mg Tablet, 20 MG PO QHS, #30 TAB 04/05/18 Metformin Hcl* (Metformin Hcl*) 1,000 Mg Tablet, 1000 MG PO WITH BREAKFAST DINNE, #60 TAB 04/05/18 Insulin Aspart* (Novolog Insulin Pen*) 100 Unit/Ml Soln, 0 SC WITH MEALS, EA 7 unit-qam, 7 unit-noon, 6 unit-qpm 04/05/18 Discontinued Reported Medications Bromfenac Sodium (Bromsite) 5 Ml Drops, 5 ML OP BID, BOTTLE 04/05/18 Medroxyprogesterone Acetate* (Provera*) 10 Mg Tablet, 10 MG PO NEEDED, TAB 04/05/18 Chlorthalidone* (Chlorthalidone*) 25 Mg Tablet, 12.5 MG PO DAILY, TAB 04/05/18 Insulin Glargine,Hum.rec.anlog (Basaglar Kwikpen U-100) 100 Unit/1 Ml Insuln.pen, 16 UNIT SC QHS, EA 04/05/18 Current Medications Sodium Chloride 1,000 ml @ 25 mls/hr Q24H IV Last administered on 09/07/18at 06:44; Admin Dose 25 MLS/HR; Start 09/07/18 at 06:30 Meds reviewed: Yes Allergies Coded Allergies: No Known Drug Allergies (Verified Allergy, Unknown, 09/07/18) Allergies Reviewed: Yes Labs/Studies Labs Reviewed: Reviewed by anesthesiologist test: N/A Studies: ECG (NSR), CXR Pre-procedure Exam Last vitals Vital Signs Date Temp Pulse Resp B/P (MAP) Pulse Ox O2 O2 Flow FiO2 Time Delivery Rate 09/07/18 97.6 62 18 114/67 97 Room Air 05:41 (83) Airway: Adequate mouth opening, Adequate thyromental dist Mallampati: Mallampati II Teeth: Normal Lung: Normal Heart: Normal ASA Physical Status ASA physical status: 3 Emergency: None Planned Anesthetic General/MAC: ETT Planned Pain Management Parenteral pain med Pre-operative Attestations Prior to commencing anesthesia and surgery, the patient was re-evaluated, there was verification of: *The patient's identity *The results of appropriate recent lab work and preoperative vital signs *The above evaluation not changing prior to induction *Anesthetic plan, risk benefits, alternative and complications discussed with patient/family; questions answered; patient/family understands, accepts and wishes to proceed. JAKI SQUIRES MD Sep 07, 2018 06:52
--- NOTE | 2018-09-07 06:55 | HPN ---
Date/Time of Note Date/Time of Note DATE: 09/07/18 TIME: 06:55 Interval H&P Admission Note Pt. seen H&P reviewed: No system changes OSIRIS MORA PA-C Sep 07, 2018 06:55
[2018-09-07] MEDS ORDERED: ROCURONIUM 50 MG INJ ONE (06:58)
[2018-09-07] MEDS ORDERED: CEFAZOLIN 1 GM INJ ONE ×2 (06:58→10:12)
[2018-09-07] MEDS ORDERED: PROPOFOL 0 ML ONE (06:58)
[2018-09-07] MEDS ORDERED: SEVOFLURANE 15 MIN ONE (07:00)
[2018-09-07] MEDS ORDERED: HYDROmorphONE 0.5 MG/0.5 ML SYG IV PRN (07:00)
[2018-09-07] MEDS ORDERED: AL HYDROX/MG HYDROX/SIMETH 30 ML CUP PO PRN (07:00)
[2018-09-07] MEDS ORDERED: ACETAMINOPHEN 325 MG TAB PO PRN (07:00)
[2018-09-07] MEDS ORDERED: HYDROCODONE/APAP (10/325) TAB PO PRN ×2 (07:00)
[2018-09-07] MEDS ORDERED: DIPHENHYDRAMINE 25 MG CAP PO PRN (07:00)
[2018-09-07] MEDS ORDERED: CEPASTAT LOZENGE MT PRN (07:00)
[2018-09-07] MEDS ORDERED: NALOXONE (0.4 MG/ML) INJ IV PRN (07:00)
[2018-09-07] MEDS ORDERED: CYCLOBENZAPRINE 10 MG TAB PO PRN (07:00)
[2018-09-07] MEDS ORDERED: BISACODYL 10 MG SUPP PR PRN (07:00)
[2018-09-07] MEDS ORDERED: HYDROmorphONE 0.2 MG/ML PCA IV SCH (07:00)
[2018-09-07] MEDS ORDERED: DIPHENHYDRAMINE 50 MG INJ IV PRN ×2 (07:00→09:30)
[2018-09-07] MEDS ORDERED: METOCLOPRAMIDE 10 MG INJ ONE (07:01)
[2018-09-07] MEDS ORDERED: ONDANSETRON 4 MG INJ ONE (07:01)
[2018-09-07] MEDS ORDERED: DEXAMETHASONE 4 MG/ML 5 ML INJ ONE (07:01)
[2018-09-07] MEDS: CEFAZOLIN 1 GM/50 ML (PMX) 50 ML IVPB SCH ×3 (07:20→22:11)
[2018-09-07] MEDS ORDERED: SUGAMMADEX SODIUM 200 MG/2 ML VIAL IV ONE (09:08)
[2018-09-07] MEDS ORDERED: MINERAL OIL LIGHT 10 ML VIAL ONE (09:16)
[2018-09-07] MEDS ORDERED: MEPERIDINE 25 MG INJ IV PRN (09:30)
[2018-09-07] MEDS ORDERED: METOCLOPRAMIDE 10 MG INJ IV PRN (09:30)
[2018-09-07] MEDS ORDERED: FENTAnyl 50 MCG/ML VIAL IV PRN ×3 (09:30)
[2018-09-07] MEDS ORDERED: OXYCODONE/ACETAMINOPHEN (5/325) TAB PO PRN (09:30)
[2018-09-07] MEDS ORDERED: hydrALAzine 20 MG INJ IV PRN (09:30)
[2018-09-07] MEDS ORDERED: LABETALOL HCL 20MG INJ IV PRN (09:30)
[2018-09-07] MEDS ORDERED: EPHEDrine 25 MG/5 ML SYG IV PRN (09:30)
[2018-09-07] MEDS ORDERED: HYDROmorphONE 1 MG/5 ML IV SYRINGE IV PRN ×3 (09:30)
[2018-09-07] MEDS ORDERED: ONDANSETRON 4 MG INJ IV PRN (09:30)
[2018-09-07] MEDS ORDERED: BUPIVACAINE 0.25% (MPF) 30 ML INJ ONE (09:45)
[2018-09-07] MEDS ORDERED: FENTAnyl 50 MCG/ML VIAL ONE (09:45)
[2018-09-07] MEDS ORDERED: BUPIVACAINE 0.25% (MPF) 30 ML INJ ZFS ONE (09:56)
[2018-09-07] MEDS ORDERED: THROMBIN 5000 UNIT VIAL ZFS ONE (09:56)
[2018-09-07] MEDS ORDERED: EPHEDrine 25 MG/5 ML SYG ONE (10:08)
[2018-09-07] MEDS ORDERED: hydrALAzine 20 MG INJ ONE (10:20)
--- NOTE | 2018-09-07 10:23 | SIPON ---
Date/Time of Note Date/Time of Note DATE: 09/07/18 TIME: 10:22 Operative Report Preoperative Diagnosis lumbar spinal stenosis Postoperative Diagnosis lumbar spinal stenosis Operation/Procedure Performed lumbar decompression Surgeon see signature line cashier assistant devante Anesthesia: general Estimated blood loss: 150 - 200 ml's Transfusion Required none Specimen spinous process Grafts/Implants none Complications none GURDEEP COELLO MD Sep 07, 2018 10:23
--- NOTE | 2018-09-07 10:32 | PAC ---
Date/Time of Note Date/Time of Note DATE: 09/07/18 TIME: 10:32 Post-Anesthesia Notes Post-Anesthesia Note Last documented vital signs Vital Signs Date Temp Pulse Resp B/P (MAP) Pulse Ox O2 O2 Flow FiO2 Time Delivery Rate 09/07/18 97.6 62 18 114/67 97 Room Air 10:31 (83) Activity: WNL Respiratory function: WNL Cardiovascular function: WNL Mental status: Baseline Pain reasonably controlled: Yes Hydration appropriate: Yes Nausea/Vomiting absent: Yes JAKI SQUIRES MD Sep 07, 2018 10:32
--- NOTE | 2018-09-07 11:06 | OPR ---
DATE OF OPERATION: 09/07/2018 PREOPERATIVE DIAGNOSES: 1. 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 POSTOPERATIVE DIAGNOSES: 1. 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 PROCEDURES: 1. Central decompressive laminectomy at L3-4, L4-5 and L5-S1, decompression of L3-L4, L5-S1 nerve roots bilaterally. 2. Lateral localizing film x2. 3. Intraoperative neuromonitoring. GEOSPATIAL IMAGE ANALYST: Lindsay Melvin PA-C. NEED FOR PLANER FEEDER: During this spinal surgical procedure, my speech and language assistant was used to retract and protect the spinal nerves and dural sac. My speech and language assistant also employed the suction catheters to evacuate blood from the surgical field to improve visualization of the neural structures. The speech and language assistant was medically necessary to facilitate the completion of the surgery in a safe and expeditious manner. [facility] regulations, as well as hospital bylaws, preclude the use of non-licensed health care personnel, such as operating room technicians, to perform these functions. FINDINGS: Neuromonitoring at the start of the case revealed left posterior tibial signal down 20%, right down 50%. All nerve down 10% bilaterally. L2 down 20% bilaterally, L3 down 20% bilaterally, L4 down 20% on the left, 30% on the right L5 down 50% on the left. 60% on the right. S1 down 50% on the left, 60% on the right. At the end of the case. Posterior tip was down 10% on the left, 20% on the right, all nerve remained down 10%. L2 and L3 were down 10% bilaterally. L4 was normal. L5 was down 10% on the left, 20% on the right. S1 was normal and left, 10% on the right. The patient had severe stenosis from L3 to the sacrum. ESTIMATED BLOOD LOSS: 150 mL. SPECIMENS: Spinous process. DRAINS: 1. COMPLICATIONS OF PROCEDURES: None. ANESTHESIOLOGIST: Dr. Currie. TYPE OF ANESTHESIA: General. INDICATIONS FOR PROCEDURE: This is an 82-year-old gentleman with back and leg pain in the setting of severe lumbar spinal stenosis. He failed nonoperative measures; therefore, I recommended that he undergo the procedure. Preoperatively, we discussed risks, benefits, and alternatives. He understood and wished to proceed. DESCRIPTION OF PROCEDURE IN DETAIL: The patient was identified in the preoperative holding area, given antibiotics, taken to the operating where he was successfully placed under general anesthesia. Neuromonitoring leads were placed, sequential compressive devices were applied. Azevedo catheter was introduced. Arterial line was placed. Remote intraoperative neuromonitoring was performed by Dr. Mcdoanld from 6:40 till 10:20 to include SSEP, MEP, and EMG performed by [place]. The patient was placed in the operative table in prone position over a Jimy frame. All bony prominences were well padded. The back was then prepped and draped in usual fashion. Spinal needles were placed and lateral films obtained to confirm the correct levels. Once this was confirmed, I injected the skin, subcutaneous tissue with Marcaine and epinephrine. Incision was then made from L3 to the sacrum. Incision was taken down to dorsal fascia, which was incised with Bovie cautery. Then, subperiosteally dissected the lamina from L3 to the sacrum. Self-retaining retractors were placed. Kerrison was placed under the lamina and repeat lateral films obtained to confirm the correct levels. I next proceeded to perform a central decompressive laminectomy at L3-4, L4-5 and L5-S1. Spinous process was sent to pathology given history of prostate cancer. I removed the ligamentum flavum. I decompressed the lateral recess with partial medial facetectomy. I then decompressed the L3, L4, L5, S1 nerve roots bilaterally. Once the decompression was completed, I achieved hemostasis with bipolar cautery, Gelfoam, thrombin, and bone wax. Wound was irrigated. Valsalva was performed and there was no leak of CSF. I placed a deep subfascial drain, via an epidural catheter, I injected 2 mL of 0.25% Marcaine, 100 mcg of fentanyl, and the catheter was pulled. I then removed the retractors and closed deep fascia with #1 Vicryl stitch. I closed subcutaneous tissue with a 2-0 Vicryl stitch. A 4-0 Monocryl closure was then performed. Dermabond and sterile dressing was then applied. The patient was then awakened from anesthesia and taken to the recovery room in stable condition. Lap, sponge, and instrument counts were correct x2. There were no apparent complications during the procedure. The patient will be admitted to the orthopedic lui for routine postoperative care to include pain control, neurovascular check, antibiotics, and physical therapy. Dictated By: GURDEEP BLACK/SHAUNA Conf#: [id number] DID#: [id number] CC: BASILIO SANTIZO MD; GURDEEP COELLO MD;*EndCC* MTDD
[2018-09-07] MEDS: METOPROLOL (XL) 25 MG TAB PO SCH (12:00)
[2018-09-07] MEDS: 1/2 NS + KCL 20 MEQ 1,000 ML IV SCH ×3 (12:11→22:11)
[2018-09-07] MEDS ORDERED: GLUCOSE GEL 15 GRAM TUBE BUCCAL PRN (12:30)
[2018-09-07] MEDS ORDERED: DEXTROSE 50% 50 ML SYRINGE IV PRN ×2 (12:30)
[2018-09-07] MEDS ORDERED: GLUCAGON 1 MG INJ IM PRN (12:30)
[2018-09-07] MEDS ORDERED: GLUCOSE GEL 15 GRAM TUBE PO PRN ×2 (12:30)
[2018-09-07] MEDS ORDERED: ETOMIDATE 20 MG INJ ONE (12:52)
[2018-09-07] MEDS: INSULIN ASPART [NOVOLOG] 3 ML PEN SC SCH ×3 (13:46→20:51)
--- NOTE | 2018-09-07 14:46 | CONS ---
DATE OF ADMISSION: 09/07/2018 DATE OF CONSULTATION: 09/07/2018 TYPE OF CONSULTATION: Postoperative medical. Thank you very much for allowing me to evaluate this 82-year-old male who just underwent lumbar back surgery. HISTORICAL EVENTS: As you well know, this patient had progressive disabling low back pain and electe d to proceed with surgical intervention after undergoing needed low back imaging. Postoperatively in recovery room, he is quite comfortable, noting slight back discomfort, but denying cough, wheezing, shortness of breath, nausea, vomiting, abdominal or chest pain or palpitations. PAST MEDICAL HISTORY: Includes: 1. Known mitral stenosis. 2. History of hypertension. 3. History of paroxysmal atrial tachycardia. 4. Hyperlipidemia. 5. History of prostate cancer. 6. Diabetes type 2. 7. Prior coronary artery bypass graft. 8. Prior cholecystectomy. 9. Vitamin D deficiency. PRESENT MEDICATIONS: 1. Ascorbic acid 1 gram per day. 2. Atorvastatin 20 mg per day. 3. Benazepril 20 mg per day. 4. Chlorthalidone 25 mg per day. 5. Gabapentin 100 mg b.i.d. 6. NovoLog insulin. 7. Tresiba. 8. Metformin. 9. Metoprolol 25 mg per day. 10. Aspirin 81 mg per day. 11. Vitamin D daily. 12. Vitamin B12 daily. FAMILY HISTORY: Positive for hypertension, stroke and lung disease. SOCIAL HISTORY: Does not smoke. Does drink alcohol. Retired and . PHYSICAL EXAMINATION: GENERAL: [place] male. VITAL SIGNS: BP 98/72, pulse 70, respirations were 18. He was afebrile. HEENT: Eyes: Extraocular muscles were full. Nose, mouth and throat are normal. NECK: Supple. There was no jugular venous distention, thyroid enlargement or adenopathy. Carotids are +2. LUNGS: Clear. HEART: Rhythm is regular. No murmur. No third or fourth sound. ABDOMEN: Nontender. Liver and spleen are not palpable. No mass or tenderness were noted. EXTREMITIES: No edema. Calves are nontender. Reduced pulses distally. NEUROLOGIC: No lateralizing motor weakness. IMPRESSION: 1. Stable postop lumbar back surgery. 2. History of diabetes. We will continue his meds. We will continue both long and short-acting ins ulin. Begin metformin tomorrow. 3. We will evaluate daily for signs and symptoms of thromboembolic disease. 4. Hyperlipidemia. Statin to be continued. 5. Known coronary artery disease. Close observation with cardiopulmonary exams daily. 6. Prostate cancer will be certain if postvoid residuals are acceptable, i.e. less than 100 mL. Dictated By: BASILIO SANTIZO MD MR/NTS Conf#: [id number] DID#: [id number] CC: GURDEEP COELLO MD;*EndCC*
[2018-09-07] MEDS: ONDANSETRON 4 MG INJ IV PRN (16:35)
[2018-09-07] MEDS: metFORMIN 500 MG TAB PO SCH (17:22)
[2018-09-07] MEDS: DOCUSATE SODIUM 100 MG CAP PO SCH (20:47)
[2018-09-07] MEDS: BENAZEPRIL 20 MG TAB PO SCH (20:48)
[2018-09-07] MEDS: ATORVASTATIN 20 MG TAB PO SCH (20:48)
[2018-09-07] MEDS: GABAPENTIN 100 MG CAP PO SCH (20:49)
[2018-09-07] MEDS ORDERED: BROMFENAC SODIUM XX SCH (21:00)
[2018-09-08] MEDS: ACCU-CHEK XX SCH ×2 (01:17→21:22)
[2018-09-08 02:01] VITALS: BP 123/58; PULSE 55; RESP 17
[2018-09-08] MEDS: SOD CHLORIDE 0.9% 1,000 ML IV SCH ×3 (05:54→23:35)
[2018-09-08] MEDS: ONDANSETRON 4 MG INJ IV PRN (07:18)
[2018-09-08 07:56] VITALS: BP 132/67; PULSE 58; RESP 18
--- NOTE | 2018-09-08 08:29 | CONS ---
Assessment/Plan Assessment/Plan Assessment/Plan (Daily) 1. Post op lumbar back surgery 2. CHO is elevated, insulin regimen modified 3. Low mag, will replete 4. Path gi sxs, Reglan and IV Protonix started 5. ASHD, quiescent Consultation Date/Type/Reason Admit Date/Time Sep 07, 2018 at 05:15 Initial Consult Date Date/Time of Note DATE: 09/08/18 TIME: 08:27 Detailed Summary Respiratory: No cough, No shortness of breath Cardiovascular: No chest pain Gastrointestinal: other (bloated, reflux sxs and "belching") Musculoskeletal: back pain (mild) Exam/Review of Systems Exam Vitals Vital Signs Date Temp Pulse Resp B/P (MAP) Pulse Ox O2 O2 Flow FiO2 Time Delivery Rate 09/08/18 98.3 58 18 132/67 95 07:56 (88) 09/07/18 Nasal 2.0 15:04 Cannula Intake and Output 09/07/18 09/07/18 09/08/18 1515:00 23:00 07:00 IntakeIntake Total 2000 ml 1920 ml 1020 ml OutputOutput Total 430 ml 590 ml 830 ml BalanceBalance 1570 ml 1330 ml 190 ml Neck: No jvd Respiratory: clear to auscultation Cardiovascular: regular rate and rhythm Gastrointestinal: soft, non-tender; No distended Extremities: No calf tenderness, No edema Results Result Diagram: 09/08/18 0506 09/08/18 0506 Results 24hrs Laboratory Tests Test 09/07/18 12:12 09/07/18 13:20 09/07/18 17:20 09/07/18 20:40 Bedside Glucose 270 H 285 H 283 H 291 H Test 09/08/18 01:10 09/08/18 05:06 09/08/18 07:01 Bedside Glucose 263 H White Blood Count 12.1 #H Red Blood Count 3.71 L Hemoglobin 10.0 L Hematocrit 31.9 L Mean Corpuscular 86.0 Volume Mean Corpuscular 27.0 L Hemoglobin Mean Corpuscular 31.3 L Hemoglobin Concent Red Cell 14.7 H Distribution Width Platelet Count 209 Mean Platelet 12.4 H Volume Immature 0.600 H Granulocytes % Neutrophils % 80.7 H Lymphocytes % 11.2 L Monocytes % 7.1 Eosinophils % 0.2 Basophils % 0.2 Nucleated Red 0.0 Blood Cells % Immature 0.070 H Granulocytes # Neutrophils # 9.8 H Lymphocytes # 1.4 Monocytes # 0.9 Eosinophils # 0.0 Basophils # 0.0 Nucleated Red 0.0 Blood Cells # Sodium Level 139 Potassium Level 4.6 Chloride Level 106 Carbon Dioxide 27 Level Anion Gap 6 Blood Urea 20 Nitrogen Creatinine 0.87 Est Glomerular Filtrat Rate mL/min Glucose Level 245 H Calcium Level 9.0 Phosphorus Level 3.7 Magnesium Level 1.6 L Lab Scanned Report REFERENCE LAB Medications Medication Current Medications Sodium Chloride 1,000 ml @ 25 mls/hr Q24H IV Last administered on 09/07/18at 06:44; Admin Dose 25 MLS/HR; Start 09/07/18 at 06:30 Potassium Chloride/Sodium Chloride 1,000 ml @ 100 mls/hr Q10H IV Last admin istered on 09/07/18at 22:11; Admin Dose 100 MLS/HR; Start 09/07/18 at 06:56 Acetaminophen/ Hydrocodone Bitart ([place] (10/325)) 1 tab Q4H PRN PO .PAIN 1-5; Start 09/07/18 at 07:00; Status Hold Acetaminophen/ Hydrocodone Bitart ([place] (10/325)) 2 tab Q4H PRN PO .PAIN 6-10; Start 09/07/18 at 07:00 Hydromorphone HCl (Dilaudid) 0.2 mg Q1H PRN IV .BREAKTHROUGH PAIN; Start 09/07/18 at 07:00 Ondansetron HCl (Zofran Inj) 4 mg Q6H PRN IV NAUSEA/VOMITING Last administered on 09/08/18at 07:18; Admin Dose 4 MG; Start 09/07/18 at 07:00 Bisacodyl (Dulcolax Supp) 10 mg DAILY PRN [place] .CONSTIPATION; Start 09/07/18 at 07:00 Docusate Sodium (Colace) 100 mg BID PO Last administered on 09/07/18at 20:47; Admin Dose 100 MG; Start 09/07/18 at 21:00 Al Hydrox/Mg Hydrox/Simethicone (Mag-Al Plus) 15 ml Q6H PRN PO .CONSTIPATION/DYSPEPSIA; Start 09/07/18 at 07:00 Acetaminophen (Tylenol Tab) 650 mg Q4H PRN PO APPIAH OR TEMP GREATER THAN 101.3F; Start 09/07/18 at 07:00 Cyclobenzaprine HCl (Flexeril) 5 mg TID PRN PO .MUSCLE SPASM; Start 09/07/18 at 07:00 Phenol (Cepastat Lozenge) 1 lozenge PRN PRN [place] .SORE THROAT; Start 09/07/18 at 07:00 Diphenhydramine HCl (Benadryl) 25 mg Q6H PRN PO .ITCHING; Start 09/07/18 at 07:00 Diphenhydramine HCl (Benadryl) 25 mg Q6H PRN IV .ITCHING; Start 09/07/18 at 07:00 Naloxone HCl (Narcan) 0.2 mg Q2M PRN IV .RR 8 BREATHS/MIN OR LESS; Start 09/07/18 at 07:00 Hydromorphone HCl (Dilaudid FACILITY COORDINATOR) FACILITY COORDINATOR to be started in PACU Q4PCA IV Last administered on 09/07/18at 10:49; Admin Dose 6 MG; Start 09/07/18 at 07:00 Miscellaneous Information 1. Hold FACILITY COORDINATOR at 1,000... FACILITY COORDINATOR IV ; Start 09/07/18 at 07:00 Atorvastatin Calcium (Lipitor) 20 mg QHS PO Last administered on 09/07/18at 20:48; Admin Dose 20 MG; Start 09/07/18 at 21:00 Benazepril HCl (Lotensin) 20 mg BID PO Last administered on 09/07/18at 20:48; Admin Dose 20 MG; Start 09/07/18 at 21:00 Gabapentin (Neurontin) 100 mg BID PO Last administered on 09/07/18at 20:49; Admin Dose 100 MG; Start 09/07/18 at 21:00 Metformin HCl (Glucophage) 1,000 mg WITH BREAKFAST DINNE PO Last administered on 09/07/18at 17:22; Admin Dose 1,000 MG; Start 09/07/18 at 17:55 Metoprolol Succinate (Toprol Xl) 25 mg DAILY PO ; Start 09/07/18 at 12:00 Miscellaneous Information 3 ml BID XX ; Start 09/07/18 at 21:00; Status UNV Diagnostic Test (Pha) (Accu-Chek) 1 ea 02 XX Last administered on 09/08/18at 01:17; Admin Dose 1 EA; Start 09/08/18 at 02:00 Insulin Aspart (Novolog Insulin Pen) NOVOLOG *MILD* ALGORITHM WITH MEALS BEDTIME SC Last administered on 09/07/18at 20:51; Admin Dose 3 UNIT; Start 09/07/18 at 11:56 Miscellaneous Information 1 ea NOTE XX ; Start 09/07/18 at 12:30 Glucose (Glutose) 15 gm Q15M PRN PO DECREASED GLUCOSE; Start 09/07/18 at 12:30 Glucose (Glutose) 22.5 gm Q15M PRN PO DECREASED GLUCOSE; Start 09/07/18 at 12:30 Dextrose (D50w Syringe) 25 ml Q15M PRN IV DECREASED GLUCOSE; Start 09/07/18 at 12:30 Dextrose (D50w Syringe) 50 ml Q15M PRN IV DECREASED GLUCOSE; Start 09/07/18 at 12:30 Glucagon (Glucagen) 1 mg Q15M PRN IM DECREASED GLUCOSE; Start 09/07/18 at 12:30 Glucose (Glutose) 15 gm Q15M PRN BUCCAL DECREASED GLUCOSE; Start 09/07/18 at 12:30 BASILIO SANTIZO MD Sep 08, 2018 08:29
[2018-09-08] MEDS ORDERED: PANTOPRAZOLE 40 MG INJ IV SCH (09:00)
[2018-09-08] MEDS ORDERED: UBIDECARENONE 200 MG PO SCH (09:00)
[2018-09-08] MEDS: metFORMIN 500 MG TAB PO SCH ×2 (09:09→17:57)
[2018-09-08] MEDS: METOCLOPRAMIDE 10 MG INJ IV SCH ×3 (09:10→20:30)
[2018-09-08] MEDS: DOCUSATE SODIUM 100 MG CAP PO SCH ×2 (09:10→21:00)
[2018-09-08] MEDS: GABAPENTIN 100 MG CAP PO SCH ×2 (09:10→21:11)
[2018-09-08] MEDS: METOPROLOL (XL) 25 MG TAB PO SCH (09:11)
[2018-09-08] MEDS: BENAZEPRIL 20 MG TAB PO SCH ×2 (09:11→21:12)
[2018-09-08] MEDS: PANTOPRAZOLE (EC) 40 MG TAB PO SCH ×2 (09:20→17:56)
[2018-09-08] MEDS: INSULIN ASPART [NOVOLOG] 3 ML PEN SC SCH ×4 (09:21→21:00)
[2018-09-08] MEDS ORDERED: MAGNESIUM SULFATE 3 GM in DEXTROSE 5% 100 ML IVPB ONE (09:30)
--- NOTE | 2018-09-08 12:09 | PN ---
Date/Time of Note Date/Time of Note DATE: 09/08/18 TIME: 12:07 Assessment/Plan Lines/Catheters IV Catheter Type (from Nrsg): Peripheral IV [place] in Place (from Nrsg): Yes Assessment/Plan Assessment/Plan POD #1 s/p lumbar decompression left leg pain likely 2/2 nerve irritation and inflammation, may improve with time ambulate, continue PT pain control Subjective 24 Hr Interval Summary c/o post-operative back discomfort and left leg pain Exam/Review of Systems Vital Signs Vitals Vital Signs Date Temp Pulse Resp B/P (MAP) Pulse Ox O2 O2 Flow FiO2 Time Delivery Rate 09/08/18 20 08:25 09/08/18 98.3 58 132/67 95 07:56 (88) 09/07/18 Nasal 2.0 15:04 Cannula Intake and Output 09/07/18 09/07/18 09/08/18 1414:59 22:59 06:59 IntakeIntake Total 2000 ml 1920 ml 1020 ml OutputOutput Total 430 ml 590 ml 830 ml BalanceBalance 1570 ml 1330 ml 190 ml Exam Free Text/Dictation BLE strength and sensation intact pulses faint but palpable drain output 30cc/last shift - drain removed incision c/d/i Results Result Diagram: 09/08/18 0506 09/08/18 0506 OSIRIS MORA PA-C Sep 08, 2018 12:09
[2018-09-08 13:44] VITALS: BP 122/56; PULSE 102; RESP 18
[2018-09-08] MEDS: ATORVASTATIN 20 MG TAB PO SCH (21:00)
[2018-09-08 21:02] VITALS: BP 124/62; PULSE 60; RESP 16
[2018-09-09] MEDS ORDERED: ACCU-CHEK XX SCH (02:00)
[2018-09-09 02:06] VITALS: BP 140/66; PULSE 61; RESP 16
[2018-09-09] MEDS: METOCLOPRAMIDE 10 MG INJ IV SCH (02:30)
[2018-09-09] MEDS: PANTOPRAZOLE (EC) 40 MG TAB PO SCH (06:24)
[2018-09-09 07:14] VITALS: BP 117/61; PULSE 68; RESP 18
[2018-09-09] MEDS ORDERED: INSULIN GLARGINE [LANTus] (100 UNITS/ML) SYG SC SCH (08:00)
--- NOTE | 2018-09-09 08:08 | CONS ---
Assessment/Plan Assessment/Plan Assessment/Plan (Daily) 1. Post op lumbar back surgery doing well. 2. Landeros to be removed 3. N and hiccups have resolved, Reglan and protonix have been stopped (was not taking preop) 4. ASHD, without incident 5. BP controlled 6. DM, sugars are acceptable Consultation Date/Type/Reason Admit Date/Time Sep 07, 2018 at 05:15 Initial Consult Date Date/Time of Note DATE: 09/09/18 TIME: 08:06 Detailed Summary Respiratory: No cough, No shortness of breath Cardiovascular: No chest pain Gastrointestinal: other (nausea, vomiting and hiccups have resolved) Genitourinary: other (landeros in place) Musculoskeletal: back pain (is less) Exam/Review of Systems Exam Vitals Vital Signs Date Temp Pulse Resp B/P (MAP) Pulse Ox O2 O2 Flow FiO2 Time Delivery Rate 09/09/18 98.9 68 18 117/61 95 07:14 (79) 09/09/18 Room Air 02:06 09/08/18 3.0 20:00 Intake and Output 09/08/18 09/08/18 09/09/18 1515:00 23:00 07:00 IntakeIntake Total 356 ml 1400 ml OutputOutput Total 200 ml 450 ml 1800 ml BalanceBalance 156 ml -450 ml -400 ml Neck: No jvd Respiratory: clear to auscultation Cardiovascular: regular rate and rhythm Gastrointestinal: soft Extremities: No edema, No tenderness Results Result Diagram: 09/09/18 0430 09/09/18 0430 Results 24hrs Laboratory Tests Test 09/08/18 08:28 09/08/18 12:52 09/08/18 17:40 09/08/18 21:13 Bedside Glucose 278 H 228 H 209 170 Test 09/09/18 04:30 White Blood Count 10.2 Red Blood Count 3.43 L Hemoglobin 9.4 L Hematocrit 29.6 L Mean Corpuscular 86.3 Volume Mean Corpuscular 27.4 L Hemoglobin Mean Corpuscular 31.8 L Hemoglobin Concent Red Cell 14.8 H Distribution Width Platelet Count 157 # Mean Platelet Volume 12.4 H Immature 0.600 H Granulocytes % Neutrophils % 74.7 Lymphocytes % 13.9 L Monocytes % 10.0 Eosinophils % 0.6 Basophils % 0.2 Nucleated Red Blood 0.0 Cells % Immature 0.060 H Granulocytes # Neutrophils # 7.6 H Lymphocytes # 1.4 Monocytes # 1.0 H Eosinophils # 0.1 Basophils # 0.0 Nucleated Red Blood 0.0 Cells # Sodium Level 138 Potassium Level 4.2 Chloride Level 106 Carbon Dioxide Level 26 Anion Gap 6 Blood Urea Nitrogen 16 Creatinine 0.80 Est Glomerular Filtrat Rate mL/min Glucose Level 183 Calcium Level 8.7 Phosphorus Level 2.6 Magnesium Level 1.9 Medications Medication Current Medications Acetaminophen/ Hydrocodone Bitart ([place] (10325)) 1 tab Q4H PRN PO .PAIN 1-5; Start 09/07/18 at 07:00; Status Hold Acetaminophen/ Hydrocodone Bitart ([place] (10325)) 2 tab Q4H PRN PO .PAIN 6-10; Start 09/07/18 at 07:00; Status Hold Hydromorphone HCl (Dilaudid) 0.2 mg Q1H PRN IV .BREAKTHROUGH PAIN; Start 09/07/18 at 07:00 Ondansetron HCl (Zofran Inj) 4 mg Q6H PRN IV NAUSEA/VOMITING Last administered on 09/08/18at 07:18; Admin Dose 4 MG; Start 09/07/18 at 07:00 Bisacodyl (Dulcolax Supp) 10 mg DAILY PRN [place] .CONSTIPATION; Start 09/07/18 at 07:00 Docusate Sodium (Colace) 100 mg BID PO Last administered on 09/08/18at 09:10; Admin Dose 100 MG; Start 09/07/18 at 21:00 Al Hydrox/Mg Hydrox/Simethicone (Mag-Al Plus) 15 ml Q6H PRN PO .CONSTIPATION/DYSPEPSIA Last administered on 09/08/18at 14:23; Admin Dose 15 ML; Start 09/07/18 at 07:00 Acetaminophen (Tylenol Tab) 650 mg Q4H PRN PO APPIAH OR TEMP GREATER THAN 101.3F; Start 09/07/18 at 07:00 Cyclobenzaprine HCl (Flexeril) 5 mg TID PRN PO .MUSCLE SPASM; Start 09/07/18 at 07:00 Phenol (Cepastat Lozenge) 1 lozenge PRN PRN [place] .SORE THROAT; Start 09/07/18 at 07:00 Diphenhydramine HCl (Benadryl) 25 mg Q6H PRN PO .ITCHING; Start 09/07/18 at 07:00 Diphenhydramine HCl (Benadryl) 25 mg Q6H PRN IV .ITCHING; Start 09/07/18 at 07:00 Naloxone HCl (Narcan) 0.2 mg Q2M PRN IV .RR 8 BREATHS/MIN OR LESS; Start 09/07/18 at 07:00 Hydromorphone HCl (Dilaudid AUTOMATIC CIGAR WRAPPER TENDER) AUTOMATIC CIGAR WRAPPER TENDER to be started in PACU Q4PCA IV Last administered on 09/07/18at 10:49; Admin Dose 6 MG; Start 09/07/18 at 07:00; Stop 09/09/18 at 10:00 Miscellaneous Information 1. Hold AUTOMATIC CIGAR WRAPPER TENDER at 1,000... AUTOMATIC CIGAR WRAPPER TENDER IV ; Start 09/07/18 at 07:00 Atorvastatin Calcium (Lipitor) 20 mg QHS PO Last administered on 09/07/18at 20:48; Admin Dose 20 MG; Start 09/07/18 at 21:00 Benazepril HCl (Lotensin) 20 mg BID PO Last administered on 09/08/18at 21:12; Admin Dose 20 MG; Start 09/07/18 at 21:00 Gabapentin (Neurontin) 100 mg BID PO Last administered on 09/08/18at 21:11; Admin Dose 100 MG; Start 09/07/18 at 21:00 Metformin HCl (Glucophage) 1,000 mg WITH BREAKFAST DINNE PO Last administered on 09/08/18at 17:57; Admin Dose 1,000 MG; Start 09/07/18 at 17:55 Metoprolol Succinate (Toprol Xl) 25 mg DAILY PO Last administered on 09/08/18at 09:11; Admin Dose 25 MG; Start 09/07/18 at 12:00 Miscellaneous Information 3 ml BID XX ; Start 09/07/18 at 21:00; Status UNV Diagnostic Test (Pha) (Accu-Chek) 1 ea 02 XX Last administered on 09/08/18at 01:17; Admin Dose 1 EA; Start 09/08/18 at 02:00 Miscellaneous Information 1 ea NOTE XX ; Start 09/07/18 at 12:30 Glucose (Glutose) 15 gm Q15M PRN PO DECREASED GLUCOSE; Start 09/07/18 at 12:30 Glucose (Glutose) 22.5 gm Q15M PRN PO DECREASED GLUCOSE; Start 09/07/18 at 12:30 Dextrose (D50w Syringe) 25 ml Q15M PRN IV DECREASED GLUCOSE; Start 09/07/18 at 12:30 Dextrose (D50w Syringe) 50 ml Q15M PRN IV DECREASED GLUCOSE; Start 09/07/18 at 12:30 Glucagon (Glucagen) 1 mg Q15M PRN IM DECREASED GLUCOSE; Start 09/07/18 at 12:30 Glucose (Glutose) 15 gm Q15M PRN BUCCAL DECREASED GLUCOSE; Start 09/07/18 at 12:30 Insulin Aspart (Novolog Insulin Pen) NOVOLOG *MODERATE* ALGORITHM WITH MEALS BEDTIME SC Last administered on 09/08/18at 17:59; Admin Dose 4 UNIT; Start 09/08/18 at 07:50 Sodium Chloride 1,000 ml @ 75 mls/hr [id number] IV Last administered on 09/08/18at 23:35; Admin Dose 75 MLS/HR; Start 09/08/18 at 08:30 Insulin Glargine (Lantus) 10 units DAILY@0800 SC ; Start 09/09/18 at 08:00 Metoclopramide HCl (Reglan) 5 mg Q6H IV Last administered on 09/08/18at 14:25; Admin Dose 5 MG; Start 09/08/18 at 08:30 Acetaminophen/ Hydrocodone Bitart ([place] (10/325)) 2 tab ONCE ONCE PO ; Start 09/09/18 at 09:30; Stop 09/09/18 at 09:31 Pantoprazole (Protonix Tab) 40 mg BID@06,18 PO Last administered on 09/09/18at 06:24; Admin Dose 40 MG; Start 09/08/18 at 09:30 BASILIO SANTIZO MD Sep 09, 2018 08:08
--- NOTE | 2018-09-09 08:17 | DS ---
Date/Time of Note Date/Time of Note DATE: 09/09/18 TIME: 08:16 Discharge Summary Admission/Discharge Info Admit Date/Time Sep 07, 2018 at 05:15 Discharge Date/Time April 11 Patient Condition: Good Procedures Lumbar decompression Hospital Course Patient was admitted to the orthopedic lui after undergoing lumbar decompression. His postoperative course was uncomplicated. By postoperative day 2 he was deemed stable for discharge with follow-up arranged with the undersigned. Home Meds Reported Medications Bromfenac Sodium (Prolensa) 3 Ml Drops, 3 ML OP BID, BOTTLE 09/07/18 Insulin Degludec (Tresiba Flextouch U-100) 100 Unit/1 Ml Insuln.pen, 6 UNIT SQ HS 09/07/18 Metoprolol Succinate* (Toprol XL*) 25 Mg Tab.sr.24h, 25 MG PO DAILY, #30 TAB 09/07/18 Chlorthalidone* (Chlorthalidone*) 25 Mg Tablet, 5 MG PO DAILY, TAB 09/07/18 Cyanocobalamin* (Vitamin B12*) Unknown Strength Tab, 1 TAB PO DAILY, TAB 04/05/18 Cholecalciferol* (Vitamin D3*) Unknown Strength Tablet, 1 TAB PO DAILY, TAB 04/05/18 Ascorbic Acid (Vitamin C) Unknown Strength Tab, 1 TAB PO DAILY, TAB 04/05/18 Levocarnitine (Carnitine) 250 Mg Capsule, 500 MG PO DAILY, CAP 04/05/18 Thioctic Acid (Alpha Lipoic Acid) 100 Mg Capsule, 100 MG PO BID, CAP 04/05/18 Ubidecarenone (Coenzyme Q-10) 200 Mg Capsule, 200 MG PO DAILY, CAP 04/05/18 Gabapentin* (Gabapentin*) 100 Mg Capsule, 100 MG PO BID, #90 CAP 04/05/18 Leuprolide Acetate (LUPRON DEPOT-PED) 30 Mg Syringekit, 30 MG IM Q 4 MONTHS 04/05/18 Aspirin* (Aspirin* EC) 81 Mg Tablet.dr, 81 MG PO DAILY, TAB 04/05/18 Benazepril Hcl* (Benazepril Hcl*) 20 Mg Tablet, 20 MG PO BID, #60 TAB TAKE 2 TAB-QAM, 1TAB-QPM 04/05/18 Atorvastatin Calcium* (Atorvastatin Calcium*) 20 Mg Tablet, 20 MG PO QHS, #30 TAB 04/05/18 Metformin Hcl* (Metformin Hcl*) 1,000 Mg Tablet, 1000 MG PO WITH BREAKFAST DINNE, #60 TAB 04/05/18 Insulin Aspart* (Novolog Insulin Pen*) 100 Unit/Ml Soln, 0 SC WITH MEALS, EA 7 unit-qam, 7 unit-noon, 6 unit-qpm 04/05/18 Discontinued Reported Medications Bromfenac Sodium (Bromsite) 5 Ml Drops, 5 ML OP BID, BOTTLE 04/05/18 Medroxyprogesterone Acetate* (Provera*) 10 Mg Tablet, 10 MG PO NEEDED, TAB 04/05/18 Chlorthalidone* (Chlorthalidone*) 25 Mg Tablet, 12.5 MG PO DAILY, TAB 04/05/18 Insulin Glargine,Hum.rec.anlog (Basaglar Kwikpen U-100) 100 Unit/1 Ml Insuln.pen, 16 UNIT SC QHS, EA 04/05/18 Primary Care Provider Not On Staff Doctor Pending Labs Laboratory Tests Test 09/08/18 08:28 09/08/18 12:52 09/08/18 17:40 09/08/18 21:13 Bedside 278 228 209 170 Glucose mg/dL (70-220) mg/dL (70-220) mg/dL (70-220) mg/dL (70-220) Test 09/09/18 04:30 White Blood 10.2 Count 10^3/ul (4.8-10 .8) Red Blood 3.43 Count 10^6/ul (4.70-6 .10) Hemoglobin 9.4 g/dl (14.0-18.0 ) Hematocrit 29.6 % (42.0-52.0) Mean 86.3 Corpuscular fl (82.0-101.0) Volume Mean 27.4 Corpuscular pg (29.0-33.0) Hemoglobin Mean 31.8 Corpuscular g/dl (32.0-37.0 Hemoglobin Conc ) ent Red Cell 14.8 Distribution % (11.5-14.5) Width Platelet Count 157 10^3/UL (140-41 5) Mean Platelet 12.4 Volume fl (7.4-10.4) Immature 0.600 Granulocytes % % (0.001-0.429) Neutrophils % 74.7 % (39.0-77.0) Lymphocytes % 13.9 % (15.0-51.0) Monocytes % 10.0 % (0.0-11.0) Eosinophils % 0.6 % (0.0-7.0) Basophils % 0.2 % (0.0-2.0) Nucleated Red 0.0 Blood Cells % /100WBC (0.0-0. 0) Immature 0.060 Granulocytes # 10^3/ul (0.0-0. 031) Neutrophils # 7.6 10^3/ul (1.6-7. 5) Lymphocytes # 1.4 10^3/ul (0.8-2. 9) Monocytes # 1.0 10^3/ul (0.3-0. 9) Eosinophils # 0.1 10^3/ul (0.0-0. 5) Basophils # 0.0 10^3/ul (0.0-0. 1) Nucleated Red 0.0 Blood Cells # 10^3/ul (0.0-0. 0) Sodium Level 138 mmol/L (135-144 ) Potassium 4.2 Level mmol/L (3.5-5.1 ) Chloride Level 106 mmol/L (97-110) Carbon Dioxide 26 Level mmol/L (21-31) Anion Gap 6 (5-13) Blood Urea 16 mg/dl (7-20) Nitrogen Creatinine 0.80 mg/dl (0.61-1.2 4) Est Glomerular mL/min (>60) Filtrat Rate mL/min Glucose Level 183 mg/dl (70-220) Calcium Level 8.7 mg/dl (8.4-10.2 ) Phosphorus 2.6 Level mg/dl (2.5-4.9) Magnesium 1.9 Level mg/dl (1.7-2.5) GURDEEP COELLO MD Sep 09, 2018 08:17
[2018-09-09] MEDS: INSULIN ASPART [NOVOLOG] 3 ML PEN SC SCH ×3 (09:08→17:49)
[2018-09-09] MEDS: BENAZEPRIL 20 MG TAB PO SCH (09:10)
[2018-09-09] MEDS: GABAPENTIN 100 MG CAP PO SCH (09:10)
[2018-09-09] MEDS: METOPROLOL (XL) 25 MG TAB PO SCH (09:11)
[2018-09-09] MEDS: DOCUSATE SODIUM 100 MG CAP PO SCH (09:14)
[2018-09-09] MEDS: metFORMIN 500 MG TAB PO SCH ×2 (09:14→17:48)
[2018-09-09] MEDS ORDERED: HYDROCODONE/APAP (10/325) TAB PO ONE (09:30)
[2018-09-09] MEDS ORDERED: BALSAM PERU/CASTOR OIL 60 GM TUBE TOP SCH (12:30)
[2018-09-09 14:43] VITALS: BP 135/81; PULSE 79; RESP 18
[2018-09-09 19:30] VITALS: BP 137/65; PULSE 62; RESP 18
== END 2018-09-09 20:09 | disposition home or self-care (01) ==
LOC: REC 05:15 → INTOOBSV 05:15 → EDSTATUS 07:00 → MS1 11:56
PROVIDERS: ADMIT Specialist; ATTEND Specialist
DX: M51.36 Other intervertebral disc degeneration, lumbar region (principal); M48.062 Spinal stenosis, lumbar region with neurogenic claudication; E11.9 Type 2 diabetes mellitus without complications; I10 Essential (primary) hypertension; E78.5 Hyperlipidemia, unspecified; I25.10 Atherosclerotic heart disease of native coronary artery without angina pectoris; Z95.1 Presence of aortocoronary bypass graft; Z79.4 Long term (current) use of insulin; Z79.82 Long term (current) use of aspirin
CPT/HCPCS: 63047; 63048; 72020; 80048; 80053; 81001; 82962; 83735; 84100; 85025; 86999; 87086; 88304; 88311; 97116; 97161; 97530; G0378; J0360; J0690; J1100; J1170; J1815; J2405; J2765; J3010; J3475; J3480; J7030; 99217